=== PATIENT | male | born 1965 | race Caucasian/White ===

== ENCOUNTER 2018-12-20 13:48 | Emergency (ER) | payer BC, OTHER ==
--- OUTSIDE RECORDS SUMMARY | 2018-12-20 13:55 | XMS REPORT | Continuity of Care Document ---
:1965 External Reference #:[id number] Author Name Alison Chambers Care Team Providers Name Role Phone Mateus Reese III, MD Primary Care Physician Unavailable Payers Date Identification Numbers Payment Provider Subscriber Policy Number: [id number] J Luis Cisneros Group Number: [id number] [address] PayID: [id number] [place] [address] Advance Directives Description No Information Available Problems Description No Information Family History Date Family Member(s) Observation Comments Father due to Unknown Causes () - age 40 Mother Alive And Well First Brother Diabetes Type II Social History Type Date Description Comments Sex Unknown Marital Status Significant Other Occupation Student ETOH Use Denies alcohol use In AA for past heavy abuse; none since Nov 2012 Tobacco Use Start: Unknown End: Patient is a former smoked 4 years. Unknown smoker Began age 16, quit age 20. 1/2ppd max. Recreational Drug Use Former Drug User Some heroin,cocaine in the 1980s-1990s. None since except medical marijuana Recreational Drug Use Regularly uses Marijuana Smoking Status Reviewed: 11/21/18 Patient is a former smoked 4 years. smoker Began age 16, quit age 20. 1/2ppd max. Exercise Type/Frequency Exercises regularly walks, some isometric exercise Allergies, Adverse Reactions, Alerts Date Description Reaction Status Severity Comments 07/09/2014 Amoxicillin Anaphylaxis Active Severe 07/09/2014 Sulfa Antibiotics tongue swells,itches Active Severe Medications Medication Date Status Form Strength Qnty SIG Indications Ordering Provider Ventolin HFA Active Aerosol 108(90Base 18gm 2 puffs J45.909 Mateus Wild ) mcg/Act by mouth Mary Ann four M.D. times a day as needed Duloxetine HCL Active Caps DR 30mg 60caps take 1 F33.0 Mateus E. 019 Part capsule Mary Ann, by mouth M.D. every morning for 1 week, then 2 tabs daily Zyrtec Allergy Active Tablets 10mg 1 by Unknown 000 mouth every day prn Tumeric 0 Active daily Unknown 000 Milk Thistle Active Capsules 200mg 1 by Unknown 000 mouth every day G[place]aboloba Active daily Unknown 000 Aleve Active Capsules 220mg pt takes Unknown 000 4 tabs prn-----1 tab twice a day as needed Immunizations CPT Code Status Date Vaccine Lot # [id number] Given 07/09/2014 Influenza Virus Vaccine, Quadrivalent, Split, [id number] Preservative Free Vital Signs Date Vital Result Comment 11/21/2018 2:43pm Height 70 inches 5'10" Weight 318.00 lb Heart Rate 77 /min BP Systolic Sitting 141 mmHg BP Diastolic Sitting 91 mmHg Body Temperature 98.3 F O2 % BldC Oximetry 95 % BMI (Body Mass Index) 45.6 kg/m2 07/09/2014 11:04am Height 69.5 inches 5'9.50" Weight 294.25 lb Heart Rate 88 /min BP Systolic Sitting 128 mmHg BP Diastolic Sitting 76 mmHg Body Temperature 97.6 F BMI (Body Mass Index) 42.8 kg/m2 Results Test Date Facility Test Result H/L Range Note Laboratory test 07/18/20 [facility] Hepatitis C Rna Undetected N Undetected 1 finding [address] Quantitative IU/[place] [address] [phone] Comp Metabolic 07/18/20 [facility] Sodium 141 mmol/L N 133- 145 Panel [address] [place] [address] [phone] Potassium 4.1 mmol/L N 3.7-5.6 Chloride 108 mmol/L N 101-111 Co2 Carbon Dioxide 30 mmol/L N 22-32 Anion Gap 3 mmol/L N 2-11 Glucose 89 mg/dL N 70-100 Blood Urea Nitrogen 24 mg/dL N 6-24 Creatinine 0.90 mg/dL N 0.67-1.17 BUN/Creatinine Ratio 26.7 High 8-20 Calcium 9.5 mg/dL N 8.6-10.3 Total Protein 6.5 g/dL N 6.4-8.9 Albumin 4.5 g/dL N 3.2-5.2 Globulin 2.0 g/dL N 2-4 Albumin/Globulin Ratio 2.3 N 1-3 Total Bilirubin 0.60 mg/dL N 0.2-1.0 Alkaline Phosphatase 39 U/L N 34-104 Alt 28 U/L N 7-52 Ast 17 U/L N 13-39 Egfr Non- 90.1 N >60 Egfr 115.8 N >60 2 CBC Auto Diff 07/18/2014 [facility] White Blood 5.8 10^3/uL N 4.8-10.[address] [place] [address] [phone] Red Blood Count 4.72 10^6/uL N 4.0-5.4 Hemoglobin 13.9 g/dL Low 14.0-18.0 Hematocrit 41 % Low 42-52 Mean Corpuscular Volume 88 fL N 80-94 Mean Corpuscular Hemoglobin 29 pg N 27-31 Mean Corpuscular HGB Conc 33 g/dL N 31-36 Red Cell Distribution Width 14 % N 10.5-15 Platelet Count 173 10^3/uL N 150-450 Mean Platelet Volume 8 um3 N 7.4-10.4 Abs Neutrophils 2.1 10^3/uL N 1.5-7.7 Abs Lymphocytes 2.7 10^3/uL N 1.0-4.8 Abs Monocytes 0.8 10^3/uL N 0-0.8 Abs Eosinophils 0.1 10^3/uL N 0-0.6 Abs Basophils 0.1 10^3/uL N 0-0.2 Abs Nucleated RBC 0.01 10^3/uL N Laboratory test 07/18/2014 [facility] TSH (Thyroid 3.06 N 0.34 -5.[address] Stimulating Horm) IU/[place] [address] [phone] Lipid Profile 07/18/2014 [facility] Triglycerides 93 mg/dL N 3 (Trig/Chol/HDL) [address] [place] [address] [phone] Cholesterol 193 mg/dL N 4 HDL Cholesterol 38.2 mg/dL N 5 LDL Cholesterol 136 mg/dL N 6 HIV 1/2 AB 07/18/2014 [facility] HIV 1 2 Nonreactive N Nonreactive [address] [place] [address] [phone] Manual 07/18/2014 [facility] Platelet Clumped N Differential [address] [place] [address] [phone] Neutrophil % 36 % Low 38-83 Lymphocytes % 51 % High 25-47 Monocytes % 10 % N 0-13 Eosinophils % 2 % N 0-6 Basophil % 1 % N 0-2 Hypochromasia 1+ N Laboratory test 07/18/2014 [facility] Pathologist Review (SEE NOTE) N [address] [place] [address] [phone] 1 Result in log IU/mL is Undetected. ADDITIONAL INFORMATION The quantification range of this assay is 15 to 100,000,000 IU/mL (1.18 log to 8.00 log IU/mL). Testing was performed by the PATRICIA AmpliPrep/PATRICIA TaqMan HCV Test, version 2.0 ([employer] Test Performed by: [place] [address] Staff Nuclear Medicine Technologist: Poli Morrissey M.D. 2 Because ethnic data is not always readily available, this report includes an eGFR for both -Americans and non- Americans. The National Kidney Disease Education Program (NKDEP) does not endorse the use of the MDRD equation for patients that are not between the ages of 18 and 70, are , have extremes of body size, muscle mass, or nutritional status, or are non- or non-. According to the National Kidney Foundation, irrespective of diagnosis, the stage of the disease is based on the level of kidney function: Stage Description GFR(mL/min/1.73 m(2)) 1 Kidney damage with normal or decreased GFR 90 2 Kidney damage with mild decrease in GFR 60-89 3 Moderate decrease in GFR 30-59 4 Severe decrease in GFR 15-29 5 Kidney failure <15 (or dialysis) 3 Desirable <150 Borderline high 150-199 High 200-499 Very High >500 4 Desirable <200 Borderline high 200-239 High >239 5 Low <40 Desirable: 40-60 High: >60 6 Desirable <100 Near Optimal 100-129 Borderline high 130-159 High 160-189 Very High >189 7 It is recognized that currently available assays for the detection of antibodies to HIV-1 and/or HIV-2 may not detect all infected individuals. HIV antibodies may be undetectable in some stages of the infection and in some clinical conditions. The performance of this assay has not been established for populations of infants or children. Assayed by Chemiluminescence Microparticle Immunoassay on the Siemens Advia Centaur CP. Values obtained with different methods or kits cannot be used interchangeably.The diagnostic specificity of the ADVIA Centaur 1/O/2 Enhanced assay in the low risk population was 99.90% (6052/6058) with a 95% confidence interval of 99.78 to 99.96%. 8 CBC and smear reviewed. Inverted PMN/lymph ratio noted. No blasts seen. Reviewed by Marguerite Rodriguez MD Procedures Description No Information Available Encounters Type Date Location Provider Dx Diagnosis Office Visit 11/21/2018 [facility] Internal Mateus Reese, F33.0 Major depressive 2:20p Akshat Meek M.D. disorder, [facility] recurrent, mild M54.5 Low back pain J45.909 Unspecified asthma, uncomplicated R03.0 Elevated blood-pressure reading, w/o diagnosis of htn Office Visit 07/09/2014 10:40a [facility] Internal Mateus Loredo V70.0 Examination Medicine Fantsama Reese M.D. [facility] Routine AT [facility] Care [facility] 300.00 Anxiety State Unspec 070.70 Hepatitis C W/O Hepatic Coma NOS 724.2 Lumbago 719.47 Pain Joint Ankle & Foot 780.79 Malaise And Fatigue Other V77.91 Screening For Lipoid Disorders V65.44 Human Immunodeficiency Virus (HIV) Counseling v04.81 Need For Prophylactic Vaccination & Inoculation/Influenza Plan of Treatment Future Appointment(s):12/20/2018 12:45 pm - Elvie Corley LCSW at [facility]12/19/2018 1:00 pm - Mateus Reese M.D. at [facility]
--- OUTSIDE RECORDS SUMMARY | 2018-12-20 13:55 | XMS REPORT | Continuity of Care Document ---
:1965 External Reference #:[id number] Author Name Mehulandrez Kassandra Care Team Providers Name Role Phone Mateus Reese III, MD Primary Care Physician Unavailable Payers Date Identification Numbers Payment Provider Subscriber Policy Number: [id number] J Luis Cisneros Group Number: [id number] [address] PayID: [id number] [place] [address] Advance Directives Description No Information Available Problems [...] Use Regularly uses Marijuana Smoking Status Reviewed: 12/19/18 Patient is a former smoked 4 years. [...] J45.909 Mateus Wild ) mcg/Act by mouth Mar yAnn four M.D. times a day as needed [...] CPT Code Status Date Vaccine Lot # [id number] Given 07/09/2014 Influenza Virus Vaccine, Quadrivalent, Split, [id number] Preservative Free Vital Signs Date Vital Result Comment 12/19/2018 1:06pm Height 70 inches 5'10" Weight 318.00 lb Heart Rate 73 /min BP Systolic Sitting 127 mmHg BP Diastolic Sitting 76 mmHg O2 % BldC Oximetry 95 % BMI (Body Mass Index) 45.6 kg/m2 11/21/2018 2:43pm Height 70 inches 5'10" Weight [...] Result H/L Range Note Laboratory test 07/18/20 [facility] Hepatitis C Rna Undetected N Undetected 1 finding [address] Quantitative IU/[place] [address] [phone] Comp Metabolic 07/18/20 [facility] Sodium 141 mmol/L N 133- 145 Panel [address] [place] [address] [phone] Potassium 4.1 mmol/L N 3.7-5.6 Chloride 108 [...] N >60 2 CBC Auto Diff 07/18/2014 [facility] White Blood 5.8 10^3/uL N 4.8-10.[address] [place] [address] [phone] Red Blood Count 4.72 10^6/uL N 4.0-5.4 [...] RBC 0.01 10^3/uL N Laboratory test 07/18/2014 [facility] TSH (Thyroid 3.06 N 0.34 -5.[address] Stimulating Horm) IU/[place] [address] [phone] Lipid Profile 07/18/2014 [facility] Triglycerides 93 mg/dL N 3 (Trig/Chol/HDL) [address] [place] [address] [phone] Cholesterol 193 mg/dL N 4 HDL Cholesterol 38.2 mg/dL N 5 LDL Cholesterol 136 mg/dL N 6 HIV 1/2 AB 07/18/2014 [facility] HIV 1 2 Nonreactive N Nonreactive 7 Evaluation 101 [facility] [place] [address] [phone] Manual 07/18/2014 [facility] Platelet Clumped N Differential [address] [facility] [place] [address] [phone] Neutrophil % 36 % Low 38-83 Lymphocytes % 51 % High 25-47 Monocytes % 10 % N 0-13 Eosinophils % 2 % N 0-6 Basophil % 1 % N 0-2 Hypochromasia 1+ N Laboratory test 07/18/2014 [facility] Pathologist Review (SEE NOTE) N 8 finding [address] [place] [address] [phone] 1 Result in log IU/mL is Undetected. ADDITIONAL INFORMATION The quantification range of this assay is 15 to 100,000,000 IU/mL (1.18 log to 8.00 log IU/mL). Testing was performed by the PATRICIA AmpliPrep/PATRICIA TaqMan HCV Test, version 2.0 ([employer] Test Performed by: [place] [address] Franchise Sales Manager: Poli Morrissey M.D. 2 Because ethnic data [...] Location Provider Dx Diagnosis Office Visit 11/21/2018 [facility] Internal Mateus Reese, F33.0 Major depressive 2:20p Akshat Meek M.D. disorder, [place] recurrent, mild M54.5 Low back pain J45.909 Unspecified asthma, uncomplicated R03.0 Elevated blood-pressure reading, w/o diagnosis of htn Office Visit 07/09/2014 10:40a Idris Loredo V70.0 Examination Akshat Reese M.D. [facility] Routine AT Health Care Facility 300.00 Anxiety State Unspec 070.70 Hepatitis C W/O Hepatic Coma NOS 724.2 Lumbago 719.47 Pain Joint Ankle & Foot 780.79 Malaise And Fatigue Other V77.91 Screening For Lipoid Disorders V65.44 Human Immunodeficiency Virus (HIV) Counseling v04.81 Need For Prophylactic Vaccination & Inoculation/Influenza Plan of Treatment Future Appointment(s):12/20/2018 12:45 pm - Elvie Corley LCSW at [facility] Internal Medicine - Houmgfkna88/19/2019 - Mateus Reese M.D.F34.1 Dysthymic disorderComments:Pt never started the Duloxetine, but mood much better now. Pt on [facility]M54.5 Low back painComments: Again suggested trial of Duloxetine for pain Rx even if not needed for mood issuesFollow up:prnR03.0 Elevated blood-pressure reading, without diagnosis of hypertComments:No home BP checks, but office BP today good. Occ home BP checks again advised. Continue diet. weight loss efforts.Follow up:At least yearly or prn. Due for 5 yr repeat screening labs this coming FallJ45.909 Unspecified asthma, uncomplicatedComments:Wheezing sx ? improved with avoiding milk/dairy products. Ok to observe, but if Albuterol ise greater than once a week, further pulmonary eval advised. Pneumovax also advised, but pt declined. ? also due for a tetanus booster, but pt declined that as well. Discussed the new shingles cefzdvfL83.11 Encounter for screening for malignant neoplasm of colonComments:Pt due for his initial colon examReferral:Chaitanya King MD, Gastroenterology
--- OUTSIDE RECORDS SUMMARY | 2018-12-20 13:55 | XMS REPORT | Continuity of Care Document ---
:1965 External Reference #:[id number] Author Name Kassandra Cesar Care Team Providers Name Role Phone Mateus Reese III, MD Primary Care Physician Unavailable Payers Date Identification Numbers Payment Provider Subscriber Policy Number: [id number] J Luis Cisneros PayID: [id number] [address] [place] [address] Advance Directives Description No Information Available Problems Description No Information Family History Description No Information Available Social History Type Date Description Comments Sex Unknown Marital Status Single Occupation Unemployed ETOH Use Denies alcohol use In AA for past heavy abuse; none since Nov 2012 Tobacco Use Start: Unknown End: Patient is a former smoked 2 years. Quit Unknown smoker 30 years ago Recreational Drug Use Former Drug User Some heroin,cocaine in the 1980s-1990s. None since except medical marijuana Smoking Status Reviewed: 11/21/18 Patient is a former smoked 2 years. Quit smoker 30 years ago Allergies, Adverse Reactions, Alerts Date Description Reaction Status Severity Comments 07/09/2014 Amoxicillin Anaphylaxis Active Severe 07/09/2014 Sulfa Antibiotics tongue swells,itches Active Severe Medications Medication Date Status Form Strength Qnty SIG Indications Ordering Provider Ventolin HFA Active Aerosol 108(90Base 18gm 2 puffs J45.909 Mateus E. 019 ) mcg/Act by mouth Mary Ann, four M.D. times a day as needed Duloxetine HCL Active Caps DR 30mg 60caps take 1 F33.0 Mateus E. 019 Part capsule Mary Ann, by mouth M.D. every morning for 1 week, then 2 tabs daily Zyrtec Allergy 0 Active Tablets 10mg 1 by Unknown 000 mouth every day prn Tumeric 0 Active daily Unknown 000 Milk Thistle Active Capsules 200mg 1 by Unknown 000 mouth every day Gincaboloba Active daily Unknown 000 Aleve Active Capsules 220mg pt takes Unknown 000 4 tabs prn-----1 tab twice a day as needed Immunizations CPT Code Status Date Vaccine Lot # [id number] Given 07/09/2014 Influenza Virus Vaccine, Quadrivalent, Split, [id number] Preservative Free Vital Signs Date Vital Result [...] Result H/L Range Note Laboratory test 07/18/20 [facility] Hepatitis C Rna Undetected N Undetected 1 finding [address] Quantitative IU/[place] [address] [phone] Comp Metabolic 07/18/20 [facility] Sodium 141 mmol/L N 133- 145 Panel [address] [place] [address] [phone] Potassium 4.1 mmol/L N 3.7-5.6 Chloride 108 [...] N >60 2 CBC Auto Diff 07/18/2014 [facility] White Blood 5.8 10^3/uL N 4.8-10.[address] [place] [address] [phone] Red Blood Count 4.72 10^6/uL N 4.0-5.4 [...] RBC 0.01 10^3/uL N Laboratory test 07/18/2014 [facility] TSH (Thyroid 3.06 N 0.34 -5.[address] Stimulating Horm) IU/[place] [address] [phone] Lipid Profile 07/18/2014 [facility] Triglycerides 93 mg/dL N 3 (Trig/Chol/HDL) [address] [place] [address] [phone] Cholesterol 193 mg/dL N 4 HDL Cholesterol 38.2 mg/dL N 5 LDL Cholesterol 136 mg/dL N 6 HIV 1/2 AB 07/18/2014 [facility] HIV 1 2 Nonreactive N Nonreactive [address] [place] [address] [phone] Manual 07/18/2014 [facility] Platelet Clumped N Differential [address] [place] [address] [phone] Neutrophil % 36 % Low 38-83 Lymphocytes % 51 % High 25-47 Monocytes % 10 % N 0-13 Eosinophils % 2 % N 0-6 Basophil % 1 % N 0-2 Hypochromasia 1+ N Laboratory test 07/18/2014 [facility] Pathologist Review (SEE NOTE) N 8 finding [address] [place] [address] [phone] 1 Result in log IU/mL is Undetected. ADDITIONAL INFORMATION The quantification range of this assay is 15 to 100,000,000 IU/mL (1.18 log to 8.00 log IU/mL). Testing was performed by the [employer] AmpliPrep/PATRICIA TaqMan HCV Test, version 2.0 ([employer] Test Performed by: [place] [address] Dictaphone Typist: Poli Morrissey M.D. 2 Because ethnic data [...] Date Location Provider Dx Diagnosis Office Visit 07/09/2014 [facility] Internal Mateus Loredo V70.0 Examination General 10:40a Medicine - Keren Reese Medical Routine AT [facility] 300.00 Anxiety State Unspec 070.70 Hepatitis C W/O Hepatic Coma NOS 724.2 Lumbago 719.47 Pain Joint Ankle & Foot 780.79 Malaise And Fatigue Other V77.91 Screening For Lipoid Disorders V65.44 Human Immunodeficiency Virus (HIV) Counseling v04.81 Need For Prophylactic Vaccination & Inoculation/Influenza Plan of Treatment Future Appointment(s):12/19/2018 1:00 pm - Mateus Reese M.D. at [facility] Internal Medicine [facility]11/21/2018 - Mateus Reese M.D.F33.0 Major depressive disorder, recurrent, mildNew Medication:Duloxetine HCL 30 mg - take 1 capsule by mouth every morning for 1 week, then 2 tabs dailyReferral:[facility], Counseling/PsychFollow up:4 weeks or prnM54.5 Low back painJ45.909 Unspecified asthma, uncomplicatedNew Medication:Ventolin HFA 108(90 Base) mcg/Act - 2 puffs by mouth four times a day as qgrtgmN83.0 Elevated blood- pressure reading, without diagnosis of hypertNew Orders:Overnight oximetry., Ordered: 11/21/18
[2018-12-20 14:36] VITALS: BP 150/68
--- NOTE | 2018-12-20 14:44 | UC ---
Ear Complaint HPI - HPI Summary HPI Summary: 53-year-old male presents with onset of right ear pain yesterday. States for the past 4-5 days he's been having cold-like symptoms including nasal congestion , clear nasal discharge, mild sore throat, and occasional dry nonproductive cough. Denies fever, chills, ear drainage, loss of hearing, tinnitus, vertigo, dysphagia, chest pain, or shortness of breath. - History of Current Complaint Chief Complaint: UCEar Stated Complaint: EAR PAIN Time Seen by Provider: 12/20/18 14:41 Hx Obtained From: Patient Pain Intensity: 4 - Allergies/Home Medications Allergies/Adverse Reactions: Allergies Allergy/AdvReac Type Severity Reaction Status Date / Time acetaminophen [From Tylenol] Allergy History of Verified 12/20/18 11:08 Hep C amoxicillin Allergy Anaphylatic Verified 12/20/18 11:08 Shock Sulfa (Sulfonamide Allergy Swelling Verified 12/20/18 11:08 Antibiotics) Of Face,Lips,& Throat, itching sulfamethoxazole Allergy Swelling Verified 12/20/18 14:28 [From Bactrim] Of Face,Lips,& Throat trimethoprim [From Bactrim] Allergy Swelling Verified 12/20/18 14:28 Of Face,Lips,& Throat PMH/Surg Hx/FS Hx/Imm Hx Previously Healthy: Yes - Denies significant PMH - Surgical History Surgical History: None - Family History Known Family History: Positive: Non-Contributory - Social History Occupation: Employed Full-time Lives: With Family Alcohol Use: None Substance Use Type: Marijuana Substance Use Comment - Amount & Last Used: yesterday Smoking Status (MU): Former Smoker Review of Systems All Other Systems Reviewed And Are Negative: Yes Constitutional: Negative: Fever, Chills Eyes: Negative: Drainage, Eye Redness ENT: Positive: Sore Throat, Ear Ache, Sinus Congestion. Negative: Nasal Discharge, Sinus Pain/Tenderness Respiratory: Positive: Cough. Negative: Shortness Of Breath Cardiovascular: Negative: Palpitations, Chest Pain Gastrointestinal: Positive: Negative Genitourinary: Positive: Negative Musculoskeletal: Positive: Negative Neurological: Positive: Negative Is Patient Immunocompromised?: No Physical Exam - Summary Physical Exam Summary: GENERAL APPEARANCE: Well developed, well nourished, alert and cooperative, and appears to be in no acute distress. EYES: Conjunctiva clear. No drainage. Vision is grossly intact. EARS: External auditory canals clear, left TM opaque with good cone of light, right TM erythematous with fluid noted behind the TM, hearing grossly intact. NOSE: Mild nasal congestion. No nasal discharge. THROAT: Pharyngeal erythema. No tonsilar inflammation, swelling, exudate, or lesions. Uvula midline. Oral cavity normal. Teeth and gingiva in good general condition. NECK: Neck supple, non-tender without lymphadenopathy. CARDIAC: Normal S1 and S2. No S3, S4 or murmurs. Rhythm is regular. There is no peripheral edema, cyanosis or pallor. Extremities are warm and well perfused. Capillary refill is less than 2 seconds. Peripheral pulses intact. LUNGS: Clear to auscultation without rales, rhonchi, wheezing or diminished breath sounds. ABDOMEN: Positive bowel sounds. Soft, nondistended, nontender. No guarding or rebound. No masses or hepatosplenomegally. MUSKULOSKELETAL: ROM intact to all extremities. No joint erythema or tenderness. Normal muscular development. Normal gait. SKIN: Skin normal color, texture and turgor with no lesions or eruptions. Triage Information Reviewed: Yes Vital Signs: Initial Vital Signs Temp 98.3 F 12/20/18 14:30 Pulse 93 12/20/18 14:30 Resp 16 12/20/18 14:30 BP 150/68 12/20/18 14:30 Pulse Ox 96 12/20/18 14:30 Vital Signs Reviewed: Yes Ear Complaint Course/Dx - Course Course Of Treatment: 53-year-old male presents with onset of right ear pain yesterday. States for the past 4-5 days he's been having cold-like symptoms including nasal congestion , clear nasal discharge, mild sore throat, and occasional dry nonproductive cough. Denies fever, chills, ear drainage, loss of hearing, tinnitus, vertigo, dysphagia, chest pain, or shortness of breath. Afebrile. Hypertensive otherwise vital signs stable. Exam reveals an adult male in no acute distress with mild nasal congestion, right TM erythema with fluid noted behind the TM, mild pharyngeal erythema without tonsillar swelling or exudate, no cervical lymphadenopathy, and otherwise unremarkable exam. Symptoms likely represented an upper respiratory infection with secondary otitis media of the right ear. Will place him on a course of azithromycin for the ear infection and recommend symptomatic treatment for the URI. Is to follow-up with his primary care provider in 7 days if symptoms persist. Anticipatory guidance and warning symptoms were reviewed with the patient. Verbalizes understanding and agrees with plan of care. - Differential Dx/Diagnosis Differential Diagnosis/HQI/PQRI: Otitis Externa, Otitis Media, Perforated TM, URI, Other - serous otits Provider Diagnosis: URI (upper respiratory infection), Right otitis media, Elevated blood pressure reading Discharge - Sign-Out/Discharge Documenting (check all that apply): Patient Departure All imaging exams completed and their final reports reviewed: No Studies - Discharge Plan Condition: Stable Disposition: HOME Prescriptions: Azithromyxin SATHISH (NF) [Z-Sathish (Zithromax) 250 mg tabs #6] 2 tab PO .TODAY, THEN 1 DAILY #6 tab Fluticasone NASAL SPRAY 50MCG* [Flonase NASAL SPRAY 50MCG*] 2 spray BOTH NARES DAILY #1 btl Patient Education Materials: Ear Infection (ED), Upper Respiratory Infection ( ED) Referrals: Mateus Reese MD [Primary Care Provider] - 7 Days (If no improvement in symptoms.) Additional Instructions: Your history and exam are consistent with an upper respiratory infection with secondary ear infection. We will start you on an antibiotic for the ear infection. Start azithromycin 2 tabs today then 1 tab a day for the next 4 days. Drink plenty of fluids. Use fluticasone (Flonase) nasal spray 2 sprays each nostril once daily. Take over the counter acetaminophen (Tylenol) or ibuprofen (Advil, Motrin) according to directions as needed for pain or fever. Use salt water gargles several times a day if you have a sore throat. You may also use Chloraseptic spray or Cepacol lonzenges according to directions which contain a numbing medication and can provide some temporary relief from your sore throat. Follow up with your primary care provider in 7 days if symptoms persist. Your blood pressure was elevated in the clinic today. It is recommended that you follow up with your primary care provider within 4 weeks to have this rechecked. Seek immediate medical attention in the emergency room if you have fever greater than 100.5 F despite taking acetaminophen or ibuprofen, have chest pain , difficulty breathing, are unable to swallow, or have any worsening of symptoms. - Billing Disposition and Condition Condition: STABLE Disposition: Home
== END 2018-12-20 15:00 | disposition home or self-care (01) ==
LOC: UCEAST 13:48
DX: J06.9 Acute upper respiratory infection, unspecified (principal); H66.91 Otitis media, unspecified, right ear; R03.0 Elevated blood-pressure reading, without diagnosis of hypertension; Z87.891 Personal history of nicotine dependence; Z88.8 Allergy status to other drugs, medicaments and biological substances; Z88.0 Allergy status to penicillin; Z88.2 Allergy status to sulfonamides; Z88.1 Allergy status to other antibiotic agents
CPT/HCPCS: 99212; G0463